=== PATIENT | female | born 1970 | race Caucasian/White ===

== ENCOUNTER → 2021-11-30 09:55 | Outpatient (BNVA) | payer MEDICAID, SELFPAY | PROVIDERS: PCP Internal Medicine Cardiovascular Disease; Visit Provider Internal Medicine | DX: R76.8 Other specified abnormal immunological findings in serum (principal); M54.50 Low back pain, unspecified; Z11.59 Encounter for screening for other viral diseases; F17.210 Nicotine dependence, cigarettes, uncomplicated | CPT/HCPCS: 99204 ==

== ENCOUNTER → 2021-12-01 09:11 | Outpatient (BNVA) | payer MEDICAID, SELFPAY | PROVIDERS: PCP Registered Nurse; Visit Provider Internal Medicine | DX: M54.50 Low back pain, unspecified (principal); R76.8 Other specified abnormal immunological findings in serum | CPT/HCPCS: 80053; 81000; 84443; 85025; 85651; 86140; 86200; 86431; 86704; 86803; 87340 ==

== ENCOUNTER → 2021-12-16 09:18 | Outpatient (BNVA) | payer MEDICAID, SELFPAY | PROVIDERS: PCP Registered Nurse; Visit Provider Internal Medicine | DX: R76.8 Other specified abnormal immunological findings in serum (principal); M54.50 Low back pain, unspecified; R70.0 Elevated erythrocyte sedimentation rate; R94.5 Abnormal results of liver function studies; F17.210 Nicotine dependence, cigarettes, uncomplicated | CPT/HCPCS: 99214 ==

== ENCOUNTER 2021-12-27 09:24 | Outpatient (CLI) | payer MEDICAID, SELFPAY ==
[2021-12-27 11:51] LABS: Alanine Aminotransferase 36 U/L (0-33); Albumin Level 4.3 g/dL (3.5-5.2); Alkaline Phosphatase 208 IU/L (35-105); Anion Gap 19.8 (5-19); Aspartate Amino Transferase 25 U/L (0-32); Blood Urea Nitrogen 7 mg/dL (6-20); Calcium 9.8 mg/dL (8.5-10.5); Carbon Dioxide 20 mmol/L (22-29); Chloride 104 mmol/L (98-107); Cholesterol 261 mg/dL (0-200); Creatine Phosphokinase 30 U/L (26-192); Ferritin 43 ng/mL (15-150); Glomerular Filtration Rate 131.1 mL/min (90-130); Glucose 85 mg/dL (65-115); HDL Cholesterol 45 mg/dL (60-100); Iron 72 ug/dL (37-145); LDL Cholesterol Calculated 176 mg/dL (50-129); LDL HDL Ratio 3.91 RATIO (0.00-3.22); Osmolality Calculated 285 mOsm/kg (285-295); Potassium 4.8 mmol/L (3.5-5.1); Sodium 139 mmol/L (136-145); Total Bilirubin 0.5 mg/dL (0.15-1.2); Total Protein 7.3 g/dL (6.6-8.7); Triglycerides 201 mg/dL (0-150)
[2021-12-28 11:23] LABS: COMPLEMENT COMPONENT C3C 189 mg/dL (83-193); COMPLEMENT COMPONENT C4C 31 mg/dL (15-57)
[2021-12-28 14:09] LABS: CENTROMERE B ANTIBODY <1.0 NEG AI (<1.0 NEG); JO-1 ANTIBODY <1.0 NEG AI (<1.0 NEG); RNP ANTIBODY <1.0 NEG AI (<1.0 NEG); SCL-70 ANTIBODY <1.0 NEG AI (<1.0 NEG); SJOGREN'S ANTIBODY (SS-A) <1.0 NEG AI (<1.0 NEG); SM ANTIBODY <1.0 NEG AI (<1.0 NEG); SS-B <1.0 NEG AI (<1.0 NEG)
[2021-12-28 15:33] LABS: ANA SCREEN, IFA NEGATIVE (NEGATIVE)
[2021-12-28 15:52] LABS: THYROID PEROXIDASE ANTIBODIES 1 IU/mL (<9)
[2021-12-29 14:32] LABS: COMPLEMENT, TOTAL (CH50) >60 U/mL (31-60)
[2021-12-31 14:43] LABS: DNA AB (DS) CRITHIDIA,IFA NEGATIVE (NEGATIVE)
== END 2021-12-27 09:25 | disposition home or self-care (01) ==
LOC: LAB 09:28
PROVIDERS: PCP Registered Nurse; Visit Provider Internal Medicine
DX: M54.50 Low back pain, unspecified (principal); R70.0 Elevated erythrocyte sedimentation rate; R76.8 Other specified abnormal immunological findings in serum; R94.5 Abnormal results of liver function studies
CPT/HCPCS: 36415; 80053; 80061; 82550; 82728; 83540; 86160; 86162; 86235; 86255; 86376

== ENCOUNTER → 2022-01-10 10:19 | Outpatient (BNVA) | payer MEDICAID, SELFPAY | PROVIDERS: PCP Registered Nurse; Referring Provider Internal Medicine; Visit Provider Anesthesiology Pain Medicine | DX: G89.29 Other chronic pain (principal); M47.816 Spondylosis without myelopathy or radiculopathy, lumbar region; M51.36 Other intervertebral disc degeneration, lumbar region; M54.16 Radiculopathy, lumbar region; F17.210 Nicotine dependence, cigarettes, uncomplicated | CPT/HCPCS: 99204 ==

== ENCOUNTER → 2022-02-08 08:53 | Outpatient (BNVA) | payer MEDICAID, SELFPAY | PROVIDERS: PCP Registered Nurse; Visit Provider Anesthesiology Pain Medicine | DX: G89.29 Other chronic pain (principal); M47.816 Spondylosis without myelopathy or radiculopathy, lumbar region; M51.36 Other intervertebral disc degeneration, lumbar region; M54.16 Radiculopathy, lumbar region; M79.604 Pain in right leg; M79.605 Pain in left leg; F17.210 Nicotine dependence, cigarettes, uncomplicated | CPT/HCPCS: 99214 ==

== ENCOUNTER 2022-03-08 06:00 | Outpatient (RCR) | payer MEDICAID, SELFPAY | END 2022-03-19 23:59 | disposition home or self-care (01) | LOC: WPT 06:00 | PROVIDERS: PCP Registered Nurse; Referring Provider Anesthesiology Pain Medicine; Visit Provider Anesthesiology Pain Medicine | DX: M54.50 Low back pain, unspecified (principal); G89.29 Other chronic pain | CPT/HCPCS: 97161 ==

== ENCOUNTER → 2022-04-07 09:31 | Outpatient (BNVA) | payer MEDICAID, SELFPAY | PROVIDERS: PCP Registered Nurse; Visit Provider Anesthesiology Pain Medicine | DX: G89.29 Other chronic pain (principal); M47.816 Spondylosis without myelopathy or radiculopathy, lumbar region; M51.36 Other intervertebral disc degeneration, lumbar region; M54.16 Radiculopathy, lumbar region; M79.604 Pain in right leg; M79.605 Pain in left leg; F17.210 Nicotine dependence, cigarettes, uncomplicated | CPT/HCPCS: 99213 ==

== ENCOUNTER 2022-06-17 13:50 | Outpatient (CLI) | payer MEDICAID, SELFPAY ==
--- NOTE | 2022-06-17 13:57 | MM_ITS ---
WS: [id number] BILATERAL 3D TOMOSYNTHESIS DIGITAL SCREENING MAMMOGRAPHY WITH CAD CLINICAL INFORMATION: SCREENING HISTORY: Screening mammogram. No current complaints. COMPARISON: None. TECHNIQUE: Bilateral CC and MLO views. FINDINGS: Scattered fibroglandular densities bilaterally. No suspicious focal mass, asymmetry, calcifications, or architectural distortion. No evidence of malignancy. MM/[place] [id number] IMPRESSION: BI-RADS: 1-Negative FOLLOW UP: 1 Year Follow-up Recommend return to annual screening mammography.
== END 2022-06-17 13:51 | disposition home or self-care (01) ==
LOC: RAD 13:51
PROVIDERS: PCP Registered Nurse; Visit Provider Registered Nurse
DX: Z12.31 Encounter for screening mammogram for malignant neoplasm of breast (principal)
CPT/HCPCS: 77063; 77067

== ENCOUNTER → 2022-07-07 09:36 | Outpatient (BNVA) | payer MEDICAID, SELFPAY | PROVIDERS: PCP Registered Nurse; Visit Provider Anesthesiology Pain Medicine | DX: F17.210 Nicotine dependence, cigarettes, uncomplicated (principal); G89.29 Other chronic pain; M51.36 Other intervertebral disc degeneration, lumbar region; M54.16 Radiculopathy, lumbar region; M47.816 Spondylosis without myelopathy or radiculopathy, lumbar region | CPT/HCPCS: 99213 ==

== ENCOUNTER → 2022-07-18 09:21 | Outpatient (BNVA) | payer MEDICAID, SELFPAY | PROVIDERS: PCP Registered Nurse; Referring Provider Registered Nurse; Visit Provider Specialist | DX: G56.03 Carpal tunnel syndrome, bilateral upper limbs (principal) | CPT/HCPCS: 95910; 95912 ==

== ENCOUNTER → 2022-08-31 08:59 | Outpatient (BNVA) | payer MEDICAID, SELFPAY | PROVIDERS: PCP Registered Nurse; Visit Provider Specialist | DX: G56.03 Carpal tunnel syndrome, bilateral upper limbs (principal) | CPT/HCPCS: 73110 ==

== ENCOUNTER 2022-08-31 13:34 | Outpatient (CLI) | payer MEDICAID, SELFPAY | END 2022-08-31 13:35 | disposition home or self-care (01) | LOC: SPT 13:35 | PROVIDERS: PCP Registered Nurse; Visit Provider Specialist | DX: Z46.89 Encounter for fitting and adjustment of other specified devices (principal); G56.03 Carpal tunnel syndrome, bilateral upper limbs | CPT/HCPCS: 97760; 99204; L3908 ==

== ENCOUNTER 2022-09-09 05:33 | Day surgery (SDC) | payer MEDICAID, SELFPAY ==
[2022-09-08 14:24] VITALS: BMI 36.6
[2022-09-09] VITALS (8 sets, daily range): BP systolic 107–131; BP diastolic 75–85; PULSE 84–97; RESP 17–20; TEMP 36.3–36.6; O2SAT 94–97
[2022-09-09 06:18] LABS: OR HCG Qualitative Urine Negative (Negative)
[2022-09-09] MEDS: acetaminophen 1,000 MG/100 ML PIGGYBACK 400 MG IV (06:19)
[2022-09-09] MEDS: CELEcoxib 200 mg Capsule 400 MG PO (06:20)
[2022-09-09] MEDS: sodium chloride 0.9% 1,000 ML 30 ML IV (06:21)
--- NOTE | 2022-09-09 06:56 | W.PM.OPSUD ---
Surgery/Procedure H&P Update DATE OF PROCEDURE: September 09, 2022 DATE H&P PERFORMED: 08/31/22 H&P UPDATE INFORMATION: I have reviewed H&P completed within last 30 days, I have examined patient prior to procedure, No changes to prior documentation and H&P is in [facility] EMR on date indicated PREOP DIAGNOSIS: Left carpal tunnel syndrome PLANNED PROCEDURE: Operation Date: 09/09/22 07:00 Proposed Procedures p LEFT CARPAL TUNNEL RELEASE [id number],G56.00(Left) - Mayuri Serra MD Related Problem List Diagnoses (1) Carpal tunnel syndrome, left:
[2022-09-09] MEDS: ceFAZolin 2,000 MG in sodium chloride 0.9% (plus) 50 ML 100 MG IV (07:06)
--- NOTE | 2022-09-09 08:00 | ANES.PREANE2 ---
Pre-Anesthetic Assessment Height/Weight: Height 1.55 m Weight 87.997 kg Temp Pulse Resp BP Pulse Ox O2 Del Method 97.8 F 97 18 116/85 97 09/09/22 06:02 09/09/22 06:02 09/09/22 06:02 09/09/22 06:02 09/09/22 06:02 09/09/22 06:08 Preop Diagnosis: Left carpal tunnel syndrome Operation Date: 09/09/22 07:00 Proposed Procedures p LEFT CARPAL TUNNEL RELEASE [id number],G56.00(Left) - Mayuri Serra MD Familial anesthetic complications: none Was Beta James taken within 24 hours: N/A Was Clonidine taken within 24 hours: N/A Last intake: Intake Last Liquid Date 09/08/22 Last Liquid Time 22:00 Last Solid Date 09/08/22 Last Solid Time 18:00 Social Tobacco and No alcohol Exam alert, oriented x 3 and regular rate & rhythm Airway Submandibular: within normal limits Cervical ROM: within normal limits Mallampati: Class II Dentition: chipped Comments: Comments: Very poor dentition, multiple caries and chipped Pulmonary Chronic Obstructive Pulmonary Disease GI Gastroesophageal Reflux Disease Musc/skel Lower Back Pain and Osteoarthritis/DJD Anesthetic Plan ASA status: 3 Anesthesia: Choice Medications/Allergies Home Medications Medication Instructions Recorded Confirmed Last Taken Type acetaminophen 500 mg tablet (Pain 1,000 mg PO DAILY 11/30/21 09/09/22 Unknown History Reliever (acetaminophen)) cyclobenzaprine 10 mg tablet 10 mg PO DAILY PRN Cramps 11/30/21 09/09/22 09/08/22 History diclofenac sodium 75 mg 75 mg PO BID 11/30/21 09/09/22 09/09/22 History tablet,delayed release gabapentin 300 mg capsule 300 mg PO TID pain #90 caps 07/07/22 09/09/22 09/09/22 Rx omeprazole 20 mg tablet,delayed 20 mg PO DAILY 07/07/22 09/09/22 09/09/22 History release Bilateral Cock Up Splints #1 ea 08/31/22 08/31/22 Unknown Rx Allergies Allergy/AdvReac Type Severity Reaction Status Date / Time No Known Allergies Allergy Verified 09/08/22 14:17 Current Medications Generic Name Dose Route Start Last Admin Trade Name Freq PRN Reason Stop Dose Admin Sodium Chloride 1,000 mls @ 30 mls/hr 09/09/22 06:00 09/09/22 06:21 Sodium Chloride 0.9% IV 09/10/22 05:59 30 mls/hr .Q24H SARMAD Administration PFSH Anesthesia Family History Mother Cancer Arthritis Family/Other Cancer Grandfather Stroke Denies family history of Rheumatoid arthritis Diabetes Lupus Hyperlipidemia Hypertension Social History Smoking and tobacco status: current every day smoker cigarettes Packs smoked per day: 0.5 Alcohol intake: never Current occupation: Unemployed History of recent travel: No Data Anesthesia Cardiac Studies: No Data to Display
--- NOTE | 2022-09-09 08:17 | PM.OP ---
Operative Report Date of procedure: September 09, 2022 Pre-op diagnosis: Left carpal tunnel syndrome ? Post-op diagnosis: Left carpal tunnel syndrome ? Post-op findings: Significant purplish discoloration to the median nerve Procedure done: Left carpal tunnel release Specimens removed/disposition: None Pathology: none sent Surgeon: Mayuri Serra Restaurant Shift Supervisor: None Anesthesia: General (LMA, ASA 2) Estimated blood loss (mL): 2 Tourniquet time (min): 32 (At 250 mmHg) IV fluids (mL): 700 Urine output (mL): 0 (No Stanton) Complications: None Findings: Significant compression of the carpal canal with adhesion of the median nerve to the undersurface of the transverse carpal ligament Condition: stable Disposition: PACU (Then to same-day surgery for discharge to home) Brief History: New 51 year old female patent presents today for left carpal tunnel release. She states her symptoms started a couple of years ago, and they are gradually getting worse. She states she experiences numbness, tingling, burning and sharp shooting pain in her bilateral hands and digits. She reports numbness to her thumb, index finger and long finger on her bilateral hands. She states her left side is worse, with numbness starting in her ring finger as well. She states she has difficulty holding objects and has difficulty sewing now. Patient states she has not tried any previous treatments. She explains she cannot take Ibuprofen due to stomach ulcers. Nerve conduction confirmed findings consistent with carpal tunnel syndrome. Risks and complications were discussed with the patient. Consents were signed. Questions were answered. The patient wished to proceed with operative intervention. Procedure: The patient was brought to the operating theater.? Patient had a general anesthetic per LMA, ASA 2. The tourniquet was elevated to 250 mmHg for a total tourniquet time of 32 minutes. The patient was also given Ancef 2 g preoperatively. The arm was then prepped and draped with DuraPrep in usual fashion with the arm draped free. A surgical pause was performed. At the time, the surgical pause, we confirmed the site and side of surgery. We also confirmed the patient's identity, appropriate and timely administration of preoperative antibiotics and preoperative surgical markings. An incision was then made along the thenar crease. The incision crossed the wrist joint in a curvilinear fashion. Dissection continued through skin and soft tissues using a scalpel. The palmaris longus was identified along with the transverse carpal ligament. Each of these was released carefully to avoid injury to the median nerve. We were able to dissect gently into the carpal canal which was noted to be quite tight with significant compression across the median nerve. The nerve was visualized and was an hourglass shape.? There was also adherence of the nerve to the undersurface of the transverse carpal ligament.? Release of fibrous tissues within the canal was also accomplished.? The canal was subsequently palpated to assure there was no bony encroachment upon the canal.? The canal was then palpated distally and proximally to assure that my small finger was passed easily without impingement. Finding this to be so, attention was directed to closure. The wound was irrigated with ropivacaine plain. It was then closed with 3-0 nylon in an interrupted mattress fashion. Sterile dressing was then placed consisting of Dermabond, OpSite, fluffed fluffs, sterile soft roll, and an Pierre wrap. The tourniquet was released after 32 minutes. There were no complications. There were no specimens. The procedure was well tolerated. Plan is the patient will be discharged home. Related Problem List Diagnoses (1) Carpal tunnel syndrome, left:
--- NOTE | 2022-09-09 13:34 | ANE.PACU2 ---
Inpatient post-anesthesia follow up: Airway intact: Yes Vital signs: Temperature 97.9 F Pulse Rate 89 Respiratory Rate 18 Blood Pressure 112/77 Pulse Oximetry 97 Oxygen Delivery Me thod Room Air Oxygen Flow Rate Fraction of Inspir ed Oxygen Hydration adequate: Yes Nausea and vomiting: No Pain level: 1 Mental status: Baseline
== END 2022-09-09 09:00 | disposition home or self-care (01) ==
PROVIDERS: Anesthesiology; PCP Registered Nurse; Visit Provider Specialist
PROC: (CPT 64721; principal; 2022-09-09 07:00)
DX: G56.02 Carpal tunnel syndrome, left upper limb (principal); J44.9 Chronic obstructive pulmonary disease, unspecified; K21.9 Gastro-esophageal reflux disease without esophagitis; F17.210 Nicotine dependence, cigarettes, uncomplicated
CPT/HCPCS: 64721; 84703; J1100; J1885; J2405; J2704; J3010; J3490; J7030

== ENCOUNTER → 2022-09-22 10:16 | Outpatient (BNVA) | payer MEDICAID, SELFPAY | PROVIDERS: PCP Registered Nurse; Visit Provider Nurse Practitioner Family | DX: Z98.890 Other specified postprocedural states (principal) | CPT/HCPCS: 99024 ==

== ENCOUNTER → 2025-02-26 10:15 | Outpatient (BNVA) | payer MEDICAID, SELFPAY | PROVIDERS: PCP Registered Nurse; Visit Provider Specialist | DX: G56.01 Carpal tunnel syndrome, right upper limb (principal) | CPT/HCPCS: 73130; 99214 ==

== ENCOUNTER 2025-03-11 15:32 | Outpatient (CLI) | payer MEDICAID, SELFPAY ==
[2025-03-11 17:35] LABS: Basophils # 0.1 10^3/uL (0.0-0.1); Basophils % 0.8 %; Eosinophils # 0.3 10^3/uL (0.0-0.8); Eosinophils % 3.6 %; Hematocrit 37.7 % (36-47); Lymphocytes # 2.5 10^3/uL (0.8-4.8); Lymphocytes % 31.9 %; Mean Corpuscular HGB Conc 32.4 g/dL (30-55); Mean Corpuscular Hemoglobin 30.8 pg (27-33); Mean Corpuscular Volume 95.2 fl (85-98); Mean Platelet Volume 9.9 fL (7.4-10.4); Monocytes # 0.4 10^3/uL (0.2-0.9); Monocytes % 4.8 %; Neutrophils # 4.56 10^3/uL (1.8-7.7); Neutrophils % 58.6 %; Nucleated Red Blood Cells % 0 %; Platelet Count 310 10^3/cmm (157-399); Red Blood Count 3.96 10^6/uL (3.85-5.65); Red Cell Distribution Width 12.8 % (12.1-15.1); White Blood Count 7.77 10^3/uL (3.29-11.43)
[2025-03-11 17:47] LABS: Bilirubin Urine Negative (Negative); Blood Urine 2+ (Negative); Glucose Urine UA Negative (Normal); Ketones Urine Negative (Negative); Leukocyte Esterase Urine Negative (Negative); Nitrate Urine Negative (Negative); Protein Urine Negative (Negative); Specific Gravity, Urine 1.015 (1.005-1.030); Urine Appearance Clear (CLEAR); Urine Color Yellow (Yellow); pH Urine 6.5 (5-7)
[2025-03-11 17:53] LABS: Add Urine Microscopic? YES; Bacteria Urine None Seen /hpf; Hyaline Casts Urine 0-4 /lpf; Squamous Epithelial Cell Urine 0-5 /hpf (0-5); WBC Urine 0-5 /hpf (0-5)
[2025-03-11 17:57] LABS: Add Urine Culture? Yes
[2025-03-11 18:15] LABS: Alanine Aminotransferase 52 U/L (0-33); Alkaline Phosphatase 220 U/L (35-105); Anion Gap 18.1 (5-19); Aspartate Amino Transferase 30 U/L (0-32); Blood Urea Nitrogen 11 mg/dL (6-20); Carbon Dioxide 21 mmol/L (22-29); Chloride 104 mmol/L (98-107); Globulin 3.2 g/dL (1.3-4.6); Glucose 92 mg/dL (65-115); Osmolality Calculated 287 mOsm/kg (285-295); Potassium 4.1 mmol/L (3.5-5.1); Sodium 139 mmol/L (136-145); Total Bilirubin 0.5 mg/dL (0.15-1.2); Total Protein 7.2 g/dL (6.6-8.7)
== END 2025-03-11 15:33 | disposition home or self-care (01) ==
LOC: LAB 15:32
PROVIDERS: PCP Registered Nurse; Visit Provider Specialist
DX: Z01.818 Encounter for other preprocedural examination (principal)
CPT/HCPCS: 36415; 80053; 81001; 85025; 87086

== ENCOUNTER 2025-04-03 08:39 | Day surgery (SDC) | payer MEDICAID, SELFPAY ==
[2025-04-03] VITALS (10 sets, daily range): BP systolic 111–134; BP diastolic 47–77; PULSE 67–86; RESP 16–66; TEMP 36.2–36.6; O2SAT 95–99; BMI 36.8
[2025-04-03] MEDS: sodium chloride 0.9% 1,000 ML 30 ML IV (09:15)
[2025-04-03] MEDS: acetaminophen 1,000 MG/100 ML PIGGYBACK 400 MG IV (09:18)
[2025-04-03] MEDS: gabapentin 300 mg Capsule PO (09:21)
[2025-04-03] MEDS: CELEcoxib 200 mg Capsule 400 MG PO (09:21)
--- NOTE | 2025-04-03 09:33 | ANES.PREANE2 ---
Pre-Anesthetic Assessment Height/Weight: Height 1.55 m Weight 88.451 kg Temp Pulse Resp BP Pulse Ox O2 Del Method 97.2 F L 77 17 131/77 98 Room Air 04/03/25 08:40 04/03/25 08:40 04/03/25 08:40 04/03/25 08:40 04/03/25 08:40 04/03/25 09:04 Operation Date: 04/03/25 10:20 Proposed Procedures p Carpal Tunnel Release(Right) - Mayuri Serra MD Familial anesthetic complications: none Was Beta James taken within 24 hours: N/A Was Clonidine taken within 24 hours: N/A Last intake: > 8 hrs Social No alcohol and No tobacco Exam alert, oriented x 3, clear to auscultation bilaterally and regular rate & rhythm Airway Mallampati: Class II Dentition: other (none) Pulmonary allergies GI Gastroesophageal Reflux Disease Metabolic Hyperlipidemia Anesthetic Plan ASA status: 2 Anesthesia: General Risk of > 500 ml blood loss (7ml/kg in children): No Medications/Allergies Home Medications ?Medication ?Instructions ?Recorded ?Confirmed ?Last Taken ?Type diclofenac sodium 75 mg 75 mg PO BID 11/30/21 04/03/25 04/03/25 History tablet,delayed release gabapentin 300 mg capsule 300 mg PO TID pain #90 caps 07/07/22 04/03/25 04/03/25 Rx omeprazole 20 mg tablet,delayed 20 mg PO DAILY 07/07/22 04/03/25 04/03/25 History release Bilateral Cock Up Splints #1 ea 08/31/22 04/03/25 Unknown Rx hhhtdguq-qkthqmx-qbpt-lutein tablet 1 tab PO DAILY 09/22/22 04/03/25 04/03/25 History atorvastatin 10 mg tablet (Lipitor) 10 mg PO DAILY 02/26/25 04/03/25 04/03/25 History albuterol sulfate 90 mcg/actuation 2 puff inhalation Q6H PRN SOB 03/18/25 04/03/25 04/03/25 History aerosol inhaler (Ventolin HFA) calcium carbonate (Oyster Shell 500 mg PO QDAY 03/18/25 04/03/25 04/03/25 History Calcium 500) cholecalciferol (vitamin D3) 1,250 1,250 mcg PO Q7D 03/18/25 04/03/2525 History mcg (50,000 unit) capsule Allergies Allergy/AdvReac Type Severity Reaction Status Date / Time No Known Allergies Allergy Verified 04/03/25 09:09 Current Medications Generic Name Dose Route Start Last Admin Trade Name Freq PRN Reason Stop Dose Admin Sodium Chloride 1,000 mls @ 30 mls/hr 04/03/25 09:00 04/03/25 09:15 Sodium Chloride 0.9% IV 04/04/25 08:59 30 mls/hr .Q24H SARMAD Administration PFSH Anesthesia Family History Mother Cancer Arthritis Family/Other Cancer Grandfather Stroke Denies family history of Rheumatoid arthritis Diabetes Lupus Hyperlipidemia Hypertension Social History Smoking and tobacco/nicotine status: current every day tobacco/nicotine user (Vapes) cigarettes Packs smoked per day: 0.5 Alcohol intake: never Current occupation: Unemployed
[2025-04-03 09:34] LABS: OR HCG Qualitative Urine Negative (Negative)
--- NOTE | 2025-04-03 09:49 | W.PM.OPSUD ---
Surgery/Procedure H&P Update DATE OF PROCEDURE: April 03, 2025 DATE H&P PERFORMED: 03/18/25 H&P UPDATE INFORMATION: I have reviewed H&P completed within last 30 days, I have examined patient prior to procedure, No changes to prior documentation, H&P is in [facility] EMR on date indicated and Risks and benefits of the procedure reviewed PREOP DIAGNOSIS: Right carpal tunnel syndrome PLANNED PROCEDURE: Operation Date: 04/03/25 10:20 Proposed Procedures p Carpal Tunnel Release(Right) - Mayuri Serra MD Related Problem List Diagnoses (1) Carpal tunnel syndrome on right:
[2025-04-03] MEDS: ceFAZolin 2,000 mg SDV 2000 MG IVP (10:02)
[2025-04-03] MEDS: BUPivacaine 0.5% INJ 30 mL XX (10:28)
--- NOTE | 2025-04-03 10:55 | P.OP_ITS ---
Operative Report Date of procedure: April 03, 2025 Pre-op diagnosis: Right carpal tunnel syndrome Post-op diagnosis: Right carpal tunnel syndrome Post-op findings: Significant compression along the right median nerve Procedure done: Right carpal tunnel release Implants: None Specimens removed/disposition: None Pathology: None Surgeon: Mayuri Serra MD Student Support Advisor: None Anesthesia: General (Per LMA, ASA 2) Estimated blood loss (mL): 2 Tourniquet time (min): 19 (@250 mmHg) IV fluids (mL): 400 Urine output (mL): 0 (No Stanton) Complications: None Findings: Significant compression across the carpal canal with fibrosis tissue along the median nerve and purpleish discoloration. Condition: stable Disposition: PACU (Then return to same-day surgery for discharge to home) Brief History: This 54-year-old woman presented with right hand numbness. Previously, she underwent left carpal tunnel release and 2021, and she has done well following this. The numbness was primarily in her thumb 1st and 2nd fingers. She had had a prior nerve conduction study in June 2022 which demonstrated bilateral abnormalities of the median nerve with moderately severe entrapment at the left wrist and mild entrapment at the right wrist. As noted, she previously had left carpal tunnel release and has done well. Her symptoms worsened in the interim, the patient wished to proceed with carpal tunnel release. Risks and complications of surgery were discussed with her. Consents were signed and questions were answered. Procedure: The patient was brought to the operating theater.? She had a general anesthetic per LMA, ASA 2. The tourniquet was elevated to 250 mmHg for a total tourniquet time of 19 minutes. The patient was also given Ancef 2 g preoperatively. The arm was then prepped and draped with DuraPrep in usual fashion with the arm draped free. A surgical pause was performed. At the time, the surgical pause, we confirmed the site and side of surgery. We also confirmed the patient's identity, appropriate and timely administration of preoperative antibiotics and preoperative surgical markings. An incision was then made along the thenar crease. The incision crossed the wrist joint in a curvilinear fashion. Dissection continued through skin and soft tissues using a scalpel. The palmaris longus was identified along with the transverse carpal ligament. Each of these was released carefully to avoid injury to the median nerve. We were able to dissect gently into the carpal canal which was noted to be quite tight with significant compression across the median nerve. The nerve was visualized and was an hourglass shape with purplish discoloration.? Release of fibrous tissues within the canal was also accomplished.? The canal was subsequently palpated to assure there was no bony encroachment upon the canal.? The canal was then palpated distally and proximally to assure that my small finger was passed easily without impingement. Finding this to be so, attention was directed to closure. The wound was irrigated with ropivacaine plain. It was then closed with 3-0 nylon in an interrupted mattress fashion. Sterile dressing was then placed consisting of Dermabond, OpSite, fluffed fluffs, sterile soft roll, and an Pierre wrap. The tourniquet was released after 19 minutes. There were no complications. There were no specimens. The procedure was well tolerated. Plan is the patient will be discharged home. Related Problem List Diagnoses (1) Carpal tunnel syndrome on right:
--- NOTE | 2025-04-03 11:55 | ANE.PACU2 ---
Inpatient post-anesthesia follow up: Airway intact: Yes Vital signs: Temperature 97.6 F Pulse Rate 72 Respiratory Rate 18 Blood Pressure 134/63 Pulse Oximetry 96 Oxygen Delivery Me thod Room Air Oxygen Flow Rate 6 Fraction of Inspir ed Oxygen Hydration adequate: Yes Nausea and vomiting: No Pain level: 1 Mental status: Baseline
--- NOTE | 2025-04-03 11:58 | SUR.PHASEII ---
Pt's Wilfredo took pt's purse and medications from pharmacy with him to get the pt's ride home while pt was in bathroom.
== END 2025-04-03 11:55 | disposition home or self-care (01) ==
PROVIDERS: Anesthesiology; PCP Registered Nurse; Visit Provider Specialist
PROC: (CPT 64721; principal; 2025-04-03 10:20)
DX: G56.01 Carpal tunnel syndrome, right upper limb (principal); E78.5 Hyperlipidemia, unspecified; K21.9 Gastro-esophageal reflux disease without esophagitis; F17.290 Nicotine dependence, other tobacco product, uncomplicated; Z79.899 Other long term (current) drug therapy
CPT/HCPCS: 64721; 81025; J0131; J0690; J1100; J2250; J2405; J2704; J3010; J3490; J7030; J9999

== ENCOUNTER → 2025-04-16 15:39 | Outpatient (BNVA) | payer MEDICAID, SELFPAY | PROVIDERS: PCP Registered Nurse; Visit Provider Specialist | DX: G56.01 Carpal tunnel syndrome, right upper limb (principal); Z98.890 Other specified postprocedural states | CPT/HCPCS: 99024 ==

== ENCOUNTER → 2025-10-28 10:42 | Outpatient (BNVA) | payer MEDICAID, SELFPAY | PROVIDERS: PCP Registered Nurse; Referring Provider Family Medicine; Visit Provider Nurse Practitioner Family | DX: M54.50 Low back pain, unspecified (principal); G89.29 Other chronic pain; F17.200 Nicotine dependence, unspecified, uncomplicated | CPT/HCPCS: 99204 ==